=== PATIENT | female | born 1970 | race Hispanic/Latino ===

== ENCOUNTER 2018-04-12 16:05 | Outpatient (CLI) | payer BC | END 2018-04-12 16:06 | disposition home or self-care (01) | LOC: BICMAMMO 16:05 | PROVIDERS: ATTEND Internal Medicine | DX: Z12.31 Encounter for screening mammogram for malignant neoplasm of breast (principal) | CPT/HCPCS: 77063; 77067 ==

== ENCOUNTER 2018-06-03 15:23 | Outpatient (CLI) | payer BC ==
--- NOTE | 2018-06-03 16:28 | ULT ---
TRANSABDOMINAL PELVIC ULTRASOUND 06/03/18 HISTORY: Adnexal tenderness. Postcoital bleeding. COMPARISON: None. TECHNIQUE: Transabdominal imaging of the pelvis is performed. The ovaries interrogated with cordero scale, color fl ow doppler imaging with spectral waveform analysis. The patient did not want endovaginal imaging. FINDINGS: The uterus is identified without any evidence of a myometrial mass. The uterus measures 9.7 x 4.2 x 5 .7 cm. The visualized endometrium has a homogeneous echotexture with a diameter of 1.1 cm. Anechoic focus in the right ovary measuring 1.6 x 1.5 x 1.4 cm compatible with a dominant follicle. O verall the right ovary measures 2.5 x 2.0 x 2.2 cm. The left ovary has a normal echotexture measuring 1.3 x 2.2 x 1.7 cm. there is a follicle measuring 0 .9 cm within the left ovary. There is no free fluid. OVARIAN DOPPLER: Vascular flow to both ovaries. IMPRESSION: Unremarkable transabdominal pelvic ultrasound. POS: [id number]
== END 2018-06-03 15:24 | disposition home or self-care (01) ==
LOC: BICULT 15:23
PROVIDERS: ATTEND Internal Medicine
DX: R10.2 Pelvic and perineal pain (principal); N93.0 Postcoital and contact bleeding
CPT/HCPCS: 76856; 93976

== ENCOUNTER 2025-03-29 15:41 | Outpatient (CLI) | payer BC | END 2025-03-29 15:42 | disposition home or self-care (01) | LOC: BICMAMMO 15:41 | PROVIDERS: ATTEND Internal Medicine | DX: Z12.31 Encounter for screening mammogram for malignant neoplasm of breast (principal) | CPT/HCPCS: 77063; 77067 ==